=== PATIENT | male | born 1950 | race Caucasian/White ===

== ENCOUNTER → 2016-08-25 | Outpatient (CLI) | payer SELFPAY ==
[~2016-08-25] VITALS: Ht 167.6 cm; Wt 84.9 kg
[~2016-08-25] MED LIST: ASPI81 PO; BENA20 PO; GABA-531 PO; INSLAN SQ; INSNOV SQ; METF500T4 PO; SIMV-261 PO
[2016-08-25 14:10] VITALS: BP 134/63
== END | disposition home or self-care (01) ==
LOC: HBOWC 13:03
PROVIDERS: ATTEND Emergency Medicine
DX: T87.89 Other complications of amputation stump (principal); E11.69 Type 2 diabetes mellitus with other specified complication; E11.51 Type 2 diabetes mellitus with diabetic peripheral angiopathy without gangrene; E11.40 Type 2 diabetes mellitus with diabetic neuropathy, unspecified; Y83.5 Amputation of limb(s) as the cause of abnormal reaction of the patient, or of later complication, without mention of misadventure at the time of the procedure